=== PATIENT | female | born 1995 | race Caucasian/White ===

== ENCOUNTER 2018-08-24 13:03 | Inpatient (IN) | payer OTHER ==
[2018-08-24] MEDS ORDERED: AMPICILLIN 2 GM/NS (PMX) 100 ML (14:56)
[2018-08-24] MEDS ORDERED: BUTORPHANOL 2 MG INJ IV (15:00)
[2018-08-24] MEDS ORDERED: CARBOPROST 250 MCG INJ IM ×2 (15:00→20:30)
[2018-08-24] MEDS ORDERED: OXYTOCIN 30 UNITS/LR 500 ML IV ×2 (15:00→20:30)
[2018-08-24] MEDS ORDERED: LIDOCAINE 1% (MPF) 30 ML INJ INJ (15:00)
[2018-08-24] MEDS ORDERED: METHYLERGONOVINE 0.2 MG INJ IM ×2 (15:00→20:30)
[2018-08-24 15:25] LABS: ADD MAN DIFF? NO
[2018-08-24 15:32] LABS: WHITE BLOOD COUNT 9.3 10^3/ul (4.8-10.8)
[2018-08-24 15:32] LABS: BASOPHILS % 0.4 % (0.0-2.0); EOSINOPHILS % 0.4 % (0.0-7.0); HEMATOCRIT 38.1 % (37.0-47.0); HEMOGLOBIN 12.4 g/dl (12.0-16.0); LYMPHOCYTES % 21.1 % (15.0-51.0); MEAN CORPUSCULAR HEMOGLOBIN 28.7 pg (29.0-33.0); MEAN CORPUSCULAR HGB CONC 32.5 g/dl (32.0-37.0); MEAN CORPUSCULAR VOLUME 88.2 fl (82.0-101.0); MONOCYTE # 0.5 10^3/ul (0.3-0.9); MONOCYTES % 5.4 % (0.0-11.0); NEUTROPHIL # 6.7 10^3/ul (1.6-7.5); NEUTROPHILS % 72.4 % (39.0-77.0); PLATELET COUNT 292 10^3/UL (140-415); RED BLOOD COUNT 4.32 10^6/ul (4.20-5.40); RED CELL DISTRIBUTION WIDTH 14.7 % (11.5-14.5)
[2018-08-24] MEDS: LACTATED RINGER'S 1,000 ML IV (15:42)
[2018-08-24] MEDS: AMPICILLIN 2 GM/NS (PMX) 100 ML IV (15:42)
[2018-08-24 15:49] LABS: INR 0.91; PROTIME 12.4 Sec (11.9-14.9)
[2018-08-24 15:50] LABS: PARTIAL THROMBOPLASTIN TIME 31.2 Sec (23.0-35.0)
[2018-08-24 16:23] LABS: HEPATITIS B SURFACE ANTIGEN NEGATIVE (NEGATIVE)
[2018-08-24] MEDS ORDERED: AMPICILLIN 1 GM/NS (PMX) 50 ML IV (17:30)
[2018-08-24] MEDS: MISOPROSTOL 200 MCG TAB PR (18:11)
[2018-08-24] MEDS: OXYTOCIN 30 UNITS/LR 500 ML IV ×2 (18:11→18:31)
[2018-08-24] MEDS: DEXTROSE 5%-LR 1,000 ML IV (20:18)
[2018-08-24] MEDS ORDERED: OXYCODONE/ASPIRIN (4.88/325) TAB PO (20:30)
[2018-08-24] MEDS ORDERED: MISOPROSTOL 200 MCG TAB PR (20:30)
[2018-08-24] MEDS ORDERED: ACETAMINOPHEN 325 MG TAB PO (20:30)
[2018-08-24] MEDS ORDERED: DIPHENHYDRAMINE 50 MG INJ IV (20:30)
[2018-08-24] MEDS ORDERED: ZOLPIDEM 5 MG TAB PO (20:30)
[2018-08-24] MEDS ORDERED: MAGNESIUM HYDROXIDE 30ML CUP PO (20:30)
[2018-08-24] MEDS ORDERED: ONDANSETRON 4 MG INJ IV (20:30)
[2018-08-24] MEDS ORDERED: DIBUCAINE 1% 30 GM OINT TOP (20:30)
[2018-08-24] MEDS: WITCH HAZEL/GLYCERIN PAD PR (22:13)
[2018-08-24] MEDS: BENZOCAINE 20% 56 ML SPRAY TOP (22:13)
[2018-08-24] MEDS: LANOLIN HPA 1 PKT TOP (22:13)
[2018-08-24] MEDS: LACTATED RINGER'S 1,000 ML IV* (23:22)
[2018-08-24] MEDS: IBUPROFEN 600 MG TAB PO (23:41)
[2018-08-25] MEDS: DEXTROSE 5%-LR 1,000 ML IV ×2 (04:18→12:18)
[2018-08-25] MEDS: LACTATED RINGER'S 1,000 ML IV* ×2 (04:18→12:18)
[2018-08-25] MEDS: IBUPROFEN 600 MG TAB PO ×3 (06:02→18:09)
[2018-08-25 08:14] LABS: ADD MAN DIFF? NO
[2018-08-25 08:18] LABS: WHITE BLOOD COUNT 10.6 10^3/ul (4.8-10.8)
[2018-08-25 08:18] LABS: BASOPHILS % 0.3 % (0.0-2.0); EOSINOPHILS # 0.2 10^3/ul (0.0-0.5); EOSINOPHILS % 1.4 % (0.0-7.0); HEMATOCRIT 31.3 % (37.0-47.0); HEMOGLOBIN 10.4 g/dl (12.0-16.0); LYMPHOCYTES # 3.5 10^3/ul (0.8-2.9); LYMPHOCYTES % 33.3 % (15.0-51.0); MEAN CORPUSCULAR HEMOGLOBIN 28.7 pg (29.0-33.0); MEAN CORPUSCULAR HGB CONC 33.2 g/dl (32.0-37.0); MEAN CORPUSCULAR VOLUME 86.5 fl (82.0-101.0); MONOCYTE # 0.8 10^3/ul (0.3-0.9); MONOCYTES % 7.6 % (0.0-11.0); PLATELET COUNT 279 10^3/UL (140-415); RED BLOOD COUNT 3.62 10^6/ul (4.20-5.40); RED CELL DISTRIBUTION WIDTH 14.6 % (11.5-14.5)
[2018-08-25] MEDS: SENNA/DOCUSATE NA (8.6MG/50MG) TAB PO (09:04)
[2018-08-25 17:19] LABS: RAPID PLASMA REAGIN NONREACTIVE (NR)
[2018-08-26] MEDS: IBUPROFEN 600 MG TAB PO ×3 (00:05→11:59)
[2018-08-26] MEDS: MEASLES,MUMPS,RUBELLA VACCINE INJ SC* (09:00)
[2018-08-26] MEDS: DIPHTH/TET/ACEL PERTUSS (ADULT) 0.5 ML VIAL IM* (12:01)
== END 2018-08-26 15:53 | disposition home or self-care (01) | DRG 807 ==
LOC: OBT 13:03 → L-D 13:05 → OBT 13:22 → L-D 13:22 → PP1 20:11
PROVIDERS: Obstetrics & Gynecology
PROC: 10E0XZZ Delivery of Products of Conception, External Approach (ICD-10-PCS; principal; 2018-08-24)
PROC: 10907ZC Drainage of Amniotic Fluid, Therapeutic from Products of Conception, Via Natural or Artificial Opening (ICD-10-PCS; 2018-08-24)
DX: O48.0 Post-term pregnancy (principal); Z37.0 Single live birth; Z3A.40 40 weeks gestation of pregnancy
CPT/HCPCS: 76815; 76818; 85025; 85610; 85730; 86592; 86850; 86900; 86901; 87340; 90715; 99464